=== PATIENT | female | born 1985 | race Caucasian/White ===

== ENCOUNTER → 2018-02-02 | Outpatient (CLI) | payer MEDICAID | LOC: FIMAGING 08:22 | PROVIDERS: ATTEND Family Medicine | DX: R74.0 Nonspecific elevation of levels of transaminase and lactic acid dehydrogenase [LDH] (principal) ==

== ENCOUNTER → 2019-02-21 | Outpatient (CLI) | payer MEDICAID | LOC: FIMAGING 09:11 | PROVIDERS: ATTEND Family Medicine | DX: M25.552 Pain in left hip (principal); R25.2 Cramp and spasm; M76.22 Iliac crest spur, left hip ==